=== PATIENT | male | born 1985 | race Caucasian/White ===

== ENCOUNTER 2017-02-22 15:13 | Emergency (ER) | payer OTHER ==
[2017-02-22] MEDS ORDERED: IBUPROFEN 800 MG TAB PO STA (15:56)
[2017-02-22] MEDS ORDERED: DIPH,PERTUS(ACELL)TETVAC-LF 0.5 ML VIAL IM ONE (15:57)
--- NOTE | 2017-02-22 16:01 | ED ---
Lower Extremity Injury HPI - General Chief Complaint: Extremity Injury, Lower Stated Complaint: Foot Injury Time Seen by Provider: 02/22/17 15:39 Source: patient Mode of arrival: ambulatory Limitations: no limitations - History of Present Illness Initial Comments: Patient is a 31-year-old male presenting to the emergency department with chief complaint of left foot pain. Patient states she was out walking in his driveway approximately 4 hours prior to arrival when he stopped on a nail. Patient was wearing tennis shoes. Patient is currently complaining of left foot pain rated 6 out of 10, described as sharp, exacerbated with activity, no relieving factors. No treatment prior to arrival. Patient doesn't recall when he received his last tetanus immunization. Patient denies recent illness, fevers, nausea, vomiting, shortness of breath, chest pain, or abdominal pain. Patient denies numbness or tingling. Patient denies previous injury or fracture to left lower extremity. - Related Data Previous Rx's Medication Instructions Recorded Ciprofloxacin HCl [Cipro] 500 mg PO Q12HR #19 tablet 02/22/17 Allergies Allergy/AdvReac Type Severity Reaction Status Date / Time No Known Allergies Allergy Verified 02/22/17 15:19 Review of Systems ROS Statement: Those systems with pertinent positive or pertinent negative responses have been documented in the HPI. ROS Other: All systems not noted in ROS Statement are negative. Past Medical History Past Medical History: No Reported History History of Any Multi-Drug Resistant Organisms: None Reported Past Surgical History: No Surgical Hx Reported Past Psychological History: No Psychological Hx Reported Smoking Status: Current every day smoker Past Alcohol Use History: Occasional Past Drug Use History: None Reported General Exam - General Exam Comments Initial Comments: GENERAL: Pt awake and alert, well-appearing, well-nourished, and in no acute distress. HEAD: Atraumatic, normocephalic. EYES: Pupils equal, round, and reactive to light, extraocular movements intact, sclera anicteric, conjunctiva are normal. ENT: Oropharynx clear without exudates. Moist mucous membranes. Tongue smooth, pink, no lesions, protrudes in midline. NECK:Normal range of motion, supple without lymphadenopathy or JVD. No carotid bruits. Thyroid midline, small and firm without palpable masses. LUNGS: Breath sounds clear to auscultation bilaterally. No wheezes, rales, or rhonchi. HEART: Heart S1, S2, no S3 or S4. No murmurs, rubs or gallops. ABDOMEN: Soft, nontender, nondistended, normoactive bowel sounds. No guarding, no rebound. No masses or organomegaly appreciated. MUSCULOSKELETAL: Normal ROM. Strength 5/5. EXTREMITIES: Dorsalis pedis pulses intact. No edema. No calf tenderness. Full range of motion of bilateral feet. NEUROLOGICAL: Pt oriented x 3. Cranial nerves II through XII grossly intact. Strength and sensation grossly intact. PSYCH: Normal mood, normal affect. SKIN: Warm, dry. Puncture wound noted to plantar aspect of forefoot. No erythema or purulent drainage noted. Limitations: no limitations Course Vital Signs 02/22/17 02/22/17 15:16 16:56 Temperature 99.0 F 97.0 F L Pulse Rate 86 72 Respiratory 16 18 Rate Blood Pressure 125/77 124/78 O2 Sat by Pulse 96 99 Oximetry Procedures - Laceration Laceration #1 Consent Obtained: verbal consent Time Out Performed: No Indication: other (Puncture wound) Site: foot (Left forefoot) Size (cm): 1 Description: contaminated Anesthetic Used: lidocaine 1% Anesthesia Technique: local infiltration Amount (mls): 2 Pre-repair: wound explored, irrigated extensively Patient Tolerated Procedure: well, no complications Additional Comments: Puncture wound irrigated extensively, no foreign body identified. Medical Decision Making - Medical Decision Making Puncture wound to plantar aspect of left forefoot secondary to stepping on a nail. Left foot x-ray negative for fracture or radiopaque foreign body. Puncture wound irrigated extensively and explored with no evidence of foreign body. Patient instructed that foreign body may be present despite exploration and x-ray. Patient placed on Cipro 500 twice a day for 10 days to cover Pseudomonas. Patient instructed to monitor for signs and symptoms of infection and return to the emergency department with worsening symptoms. Patient struck his follow-up with primary care physician for wound check in next 24-48 hours. Patient instructed to continue Motrin or Tylenol for pain. Patient agrees with treatment plan. - Radiology Data Radiology results: report reviewed X-ray left foot: No retained foreign bodies. No acute fracture. Disposition Clinical Impression: Puncture wound of left foot excluding toes without complication Disposition: HOME SELF-CARE Condition: Good Instructions: Puncture Wound (ED) Additional Instructions: Continue antibiotics as prescribed. Keep wound clean and dry. May soak foot in soap water 1-2 times a day. Monitor for signs and symptoms of infection such as increased redness, swelling, pain, or purulent drainage. Follow-up primary care physician in 48-72 hours for wound check. Continue Motrin or Tylenol for pain. Please return to the emergency department with any new or worsening symptoms. Prescriptions: Ciprofloxacin HCl [Cipro] 500 mg PO Q12HR #19 tablet Referrals: None,Stated [Primary Care Provider] - 1-2 days Time of Disposition: 16:50
--- NOTE | 2017-02-22 16:31 | XR ---
EXAMINATION TYPE: XR foot complete LT DATE OF EXAM: 02/22/2017 COMPARISON: NONE HISTORY: 31-year-old male pain first MTP joint after stepping on nail TECHNIQUE: 3 views FINDINGS: No retained radiopaque foreign body seen. No periostitis or osteolysis. No acute fracture, subluxation, or dislocation identified. No soft tissue gas identified. IMPRESSION: No acute osseous abnormality seen.
[2017-02-22] MEDS ORDERED: CIPROFLOXACIN HCL 500 MG TAB PO STA (16:46)
[2017-02-22 16:57] VITALS: BP 124/78; PULSE 72; RESP 18; TEMP 97
== END 2017-02-22 16:57 | disposition home or self-care (01) ==
LOC: EC 15:13
DX: S91.332A Puncture wound without foreign body, left foot, initial encounter (principal); Z23 Encounter for immunization; F17.200 Nicotine dependence, unspecified, uncomplicated; W45.0XXA Nail entering through skin, initial encounter
CPT/HCPCS: 90471; 90715; 99283

== ENCOUNTER 2018-12-06 04:27 | Emergency (ER) | payer OTHER ==
--- NOTE | 2018-12-06 04:49 | ED ---
Back Pain HPI - General Stated Complaint: Back Injury Time Seen by Provider: 12/06/18 04:32 Source: RN notes reviewed, old records reviewed - History of Present Illness Initial Comments: This is a 31-year-old male the ER for evaluation. Patient states he is a work- related injury, he does a lot of heavy lifting at work when he left scapular pain. Patient has worsening pain with movement. No Motrin or Tylenol taking family did taking [place] yesterday but states now but that is not working anymore. No significant trauma no chest pain, no recent fevers, no other noted issues MD Complaint: back pain (Left scapular pain) -: days(s) Similar Symptoms Previously: No Place: work Radiation: none Severity: mild Severity scale (1-10): 2 Quality: sharp, dull Consistency: intermittent Improves With: immobilization Worsens With: medication Context: while lifting Associated Symptoms: denies other symptoms Treatments Prior to Arrival: prescription analgesics - Related Data Previous Rx's Medication Instructions Recorded Ciprofloxacin HCl [Cipro] 500 mg PO Q12HR #19 tablet 02/22/17 Naproxen [Naprosyn] 500 mg PO Q12HR PRN #30 tab 12/06/18 Allergies Allergy/AdvReac Type Severity Reaction Status Date / Time No Known Allergies Allergy Verified 12/06/18 04:52 Review of Systems ROS Statement: Those systems with pertinent positive or pertinent negative responses have been documented in the HPI. ROS Other: All systems not noted in ROS Statement are negative. Past Medical History Past Medical History: No Reported History History of Any Multi-Drug Resistant Organisms: None Reported Past Surgical History: No Surgical Hx Reported Past Psychological History: No Psychological Hx Reported Smoking Status: Current every day smoker Past Alcohol Use History: Occasional Past Drug Use History: None Reported General Exam - General Exam Comments Initial Comments: Complains of tenderness for her left scapula General appearance: alert, in no apparent distress Head exam: Present: atraumatic, normocephalic, normal inspection Eye exam: Present: normal appearance, PERRL, EOMI. Absent: scleral icterus, conjunctival injection, periorbital swelling ENT exam: Present: normal exam, mucous membranes moist Neck exam: Present: normal inspection. Absent: tenderness, meningismus, lymphadenopathy Respiratory exam: Present: normal lung sounds bilaterally. Absent: respiratory distress, wheezes, rales, rhonchi, stridor Cardiovascular Exam: Present: regular rate, normal rhythm, normal heart sounds. Absent: systolic murmur, diastolic murmur, rubs, gallop, clicks GI/Abdominal exam: Present: soft, normal bowel sounds. Absent: distended, tenderness, guarding, rebound, rigid Extremities exam: Present: normal inspection, full ROM, normal capillary refill. Absent: tenderness, pedal edema, joint swelling, calf tenderness Back exam: Present: normal inspection Neurological exam: Present: alert, oriented X3, CN II-XII intact Psychiatric exam: Present: normal affect, normal mood Skin exam: Present: warm, dry, intact, normal color. Absent: rash Course Vital Signs 12/06/18 04:49 Temperature 98.0 F Pulse Rate 80 Respiratory 14 Rate Blood Pressure 130/97 O2 Sat by Pulse 97 Oximetry - Reevaluation(s) Reevaluation #1: Medical record is reviewed Patient has pain control Medical Decision Making - Medical Decision Making 33 male the ER for evaluation. Patient resents today for evaluation of back pain. X-rays are negative pain is controlled and patient can be discharged home - Radiology Data Radiology results: report reviewed (X-ray chest and shoulder negative for acute disease), image reviewed Disposition Clinical Impression: Thoracic back pain, Mid back pain Disposition: HOME SELF-CARE Condition: Good Instructions (If sedation given, give patient instructions): Back Pain (ED) Prescriptions: Naproxen [Naprosyn] 500 mg PO Q12HR PRN #30 tab PRN Reason: Pain Is patient prescribed a controlled substance at d/c from ED?: No Referrals: None,Stated [Primary Care Provider] - 1-2 days
[2018-12-06 04:52] VITALS: BP 130/97; PULSE 80; RESP 14; TEMP 98
[2018-12-06] MEDS ORDERED: KETOROLAC 60 MG/2 ML VIAL IM STA (05:25)
[2018-12-06] MEDS ORDERED: ACETAMINOPHEN TAB 500 MG TAB PO STA (05:25)
--- NOTE | 2018-12-06 05:39 | XR ---
EXAM: XR Chest, 2 Views CLINICAL HISTORY: Pain TECHNIQUE: Frontal and lateral views of the chest. COMPARISON: No relevant prior studies available. FINDINGS: Lungs: Unremarkable. No consolidation. Pleural space: Unremarkable. No pneumothorax. Heart: Unremarkable. No cardiomegaly. Mediastinum: Unremarkable. Bones/joints: No acute osseous abnormality. IMPRESSION: No acute cardiopulmonary process.
--- NOTE | 2018-12-06 05:39 | XR ---
EXAM: XR Left Shoulder Complete, 2 or More Views CLINICAL HISTORY: Pain TECHNIQUE: Two or more views of the left shoulder. COMPARISON: No relevant prior studies available. FINDINGS: Bones/joints: No acute fracture or dislocation. Soft tissues: Unremarkable. IMPRESSION: No acute fracture or dislocation.
== END 2018-12-06 05:57 | disposition home or self-care (01) ==
LOC: EC 04:27
DX: M54.6 Pain in thoracic spine (principal); M54.9 Dorsalgia, unspecified; F17.200 Nicotine dependence, unspecified, uncomplicated
CPT/HCPCS: 73030; 71046; 99284; 96372; J1885

== ENCOUNTER 2021-04-13 03:34 | Emergency (ER) | payer OTHER ==
--- NOTE | 2021-04-13 04:31 | XR ---
EXAMINATION TYPE: XR chest 1V portable DATE OF EXAM: 04/13/2021 COMPARISON: 12/06/2018 HISTORY: Congestion TECHNIQUE: FINDINGS: Heart and mediastinum are normal. There is a mild infiltrate left lower lobe. There are no hilar masses. Costophrenic angles are clear. Bony thorax is intact. IMPRESSION: There is some left lower lobe pneumonia that appears new compared to old exam.
[2021-04-13 04:42] VITALS: RESP 20
[2021-04-13] MEDS ORDERED: IBUPROFEN 400 MG TAB PO STA (04:53)
[2021-04-13] MEDS ORDERED: AZITHROMYCIN 500 MG TAB PO STA (04:56)
[2021-04-13] MEDS ORDERED: cefTRIAXone 1,000 MG VIAL (IM USE) IM STA (04:56)
--- NOTE | 2021-04-13 05:00 | ED ---
Fever HPI - General Chief Complaint: Fever Stated Complaint: Fever, Headache Time Seen by Provider: 04/13/21 04:28 Source: patient Mode of arrival: ambulatory Limitations: no limitations - Related Data Previous Rx's Medication Instructions Recorded Ciprofloxacin HCl [Cipro] 500 mg PO Q12HR #19 tablet 02/22/17 Naproxen [Naprosyn] 500 mg PO Q12HR PRN #30 tab 12/06/18 Azithromycin [Zithromax Z-pack (6 250 mg PO DIRECTED #6 tab 04/13/21 tabs)] Allergies Allergy/AdvReac Type Severity Reaction Status Date / Time No Known Allergies Allergy Verified 04/13/21 03:42 Review of Systems ROS Statement: Those systems with pertinent positive or pertinent negative responses have been documented in the HPI. ROS Other: All systems not noted in ROS Statement are negative. Past Medical History Past Medical History: No Reported History History of Any Multi-Drug Resistant Organisms: None Reported Past Surgical History: No Surgical Hx Reported Past Psychological History: No Psychological Hx Reported Smoking Status: Current every day smoker Past Alcohol Use History: Occasional Past Drug Use History: None Reported General Exam Limitations: no limitations Course Vital Signs 04/13/21 04/13/21 03:38 04:40 Temperature 102.2 F H 102.1 F H Pulse Rate 110 H 101 H Respiratory 24 20 Rate Blood Pressure 128/77 128/62 O2 Sat by Pulse 97 97 Oximetry Medical Decision Making - Lab Data Lab Results 04/13/21 Range/Units 03:43 Coronavirus (PCR) Not Detected (Not Detectd) Disposition Clinical Impression: Pneumonia Disposition: HOME SELF-CARE Condition: Good Instructions (If sedation given, give patient instructions): Pneumonia (ED) Prescriptions: Azithromycin [Zithromax Z-pack (6 tabs)] 250 mg PO DIRECTED #6 tab Is patient prescribed a controlled substance at d/c from ED?: No Referrals: None,Stated [Primary Care Provider] - 1-2 days
[2021-04-13 05:36] VITALS: BP 126/72; PULSE 90; TEMP 99.7
== END 2021-04-13 05:36 | disposition home or self-care (01) ==
LOC: EC 03:34
DX: J18.9 Pneumonia, unspecified organism (principal); F17.200 Nicotine dependence, unspecified, uncomplicated; Z72.89 Other problems related to lifestyle
CPT/HCPCS: 87635; 71045; 99284; 96372; J0696

== ENCOUNTER 2024-10-08 16:21 | Emergency (ER) | payer OTHER ==
[2024-10-08 16:39] VITALS: RESP 22
--- NOTE | 2024-10-08 17:20 | ED ---
Extremity Problem HPI - General Source: patient, RN notes reviewed Mode of arrival: ambulatory Limitations: no limitations <Edyta Stevens - Last Filed: 10/08/24 17:19> <Javier Lawson - Last Filed: 10/10/24 16:59> - General Chief complaint: Extremity Problem,Nontraumatic Stated complaint: Recheck-Feet swelling Time Seen by Provider: 10/08/24 17:20 - History of Present Illness Initial comments: Quick [id number] male presenting for bilateral lower extremity swelling x 6 months. States he went to urgent care today as he reports worsening of symptoms and was sent to the ER for ultrasound to rule out DVT. Denies chest pain, shortness of breath. Denies any other significant health conditions. (Edyta Stevens) 39-year-old male presenting with chief complaint of bilateral lower extremity swelling. This has been ongoing for 6 months. Patient was seen at urgent care today and advised to come here for an ultrasound to rule out DVT. Patient denies any chest pain, difficulty breathing, abdominal distention, fever, chills, injury, trauma, dizziness, weakness. (Javier Lawson) - Related Data Previous Rx's Medication Instructions Recorded Ciprofloxacin HCl [Cipro] 500 mg PO Q12HR #19 tablet 02/22/17 Naproxen [Naprosyn] 500 mg PO Q12HR PRN #30 tab 12/06/18 Azithromycin [Zithromax Z-pack (6 250 mg PO DIRECTED #6 tab 04/13/21 tabs)] Allergies Allergy/AdvReac Type Severity Reaction Status Date / Time methylphenidate AdvReac Hallucinati Verified 10/08/24 16:39 [From Ritalin] ons Review of Systems ROS Other: All systems not noted in ROS Statement are negative. <Edyta Stevens - Last Filed: 10/08/24 17:19> ROS Other: All systems not noted in ROS Statement are negative. <Javier Lawson - Last Filed: 10/10/24 16:59> ROS Statement: Those systems with pertinent positive or pertinent negative responses have been documented in the HPI. Past Medical History Past Medical History: No Reported History History of Any Multi-Drug Resistant Organisms: None Reported Past Surgical History: No Surgical Hx Reported Past Psychological History: No Psychological Hx Reported Smoking Status: Current every day smoker Past Alcohol Use History: Occasional Past Drug Use History: None Reported <Edyta Stevens - Last Filed: 10/08/24 17:19> General Exam Limitations: no limitations <Edyta Stevens - Last Filed: 10/08/24 17:19> Limitations: no limitations General appearance: alert, in no apparent distress Head exam: Present: atraumatic, normocephalic, normal inspection Eye exam: Present: normal appearance, EOMI Neck exam: Present: normal inspection. Absent: meningismus Respiratory exam: Present: normal lung sounds bilaterally. Absent: respiratory distress, wheezes, rales, rhonchi, stridor Cardiovascular Exam: Present: regular rate, normal rhythm, normal heart sounds. Absent: systolic murmur, diastolic murmur, rubs, gallop, clicks Extremities exam: Present: pedal edema Neurological exam: Present: alert, oriented X3 Psychiatric exam: Present: normal affect, normal mood Skin exam: Present: warm, dry, normal color <Javier Lawson - Last Filed: 10/10/24 16:59> - General Exam Comments Initial Comments: Visual Physical Exam Vital signs reviewed General: Well-appearing, nontoxic, no acute distress. Head: Normocephalic, atraumatic Eyes: PERRLA, EOMI ENT: Airway patent Chest: Nonlabored breathing Skin: No visual rash, normal skin tone Neuro: Alert and oriented 3 Musculoskeletal: No gross abnormalities (Edyta Stevens) Course Vital Signs 10/08/24 10/08/24 16:37 20:52 Temperature 97.8 F 97.9 F Pulse Rate 94 97 Respiratory 22 22 Rate Blood Pressure 131/80 112/77 O2 Sat by Pulse 98 99 Oximetry Medical Decision Making <Edyta Stevens - Last Filed: 10/08/24 17:19> - Lab Data Result diagrams: 10/08/24 17:56 10/08/24 17:56 <Javier Lawson - Last Filed: 10/10/24 16:59> - Medical Decision Making I completed the quick note portion of this chart signed Edyta Stevens PA-C (Edyta Stevens) Was pt. sent in by a medical professional or institution (, PA, [employer], urgent care, hospital, or senior living...) When possible be specific @ -No Did you speak to anyone other than the patient for history (EMS, parent, family, police, friend...)? What history was obtained from this source @ -No Did you review nursing and triage notes (agree or disagree)? Why? @ -I reviewed and agree with nursing and triage notes Were old charts reviewed (outside hosp., previous admission, EMS record, old EKG, old radiological studies, urgent care reports/EKG's, senior living records)? Report findings @ -No old charts were reviewed Differential Diagnosis (chest pain, altered mental status, abdominal pain women, abdominal pain men, vaginal bleeding, weakness, fever, dyspnea, syncope, heada rayna, dizziness, GI bleed, back pain, seizure, CVA, palpatations, mental health, musculoskeletal)? @ -Differential includes DVT, CHF, gravity dependent edema, hepatic disease, not an all-inclusive list EKG interpreted by me (3pts min.). @ -As above X-rays interpreted by me (1pt min.). @ -None done CT interpreted by me (1pt min.). @ -Ultrasound negative for DVT U/S interpreted by me (1pt. min.). @ -None done What testing was considered but not performed or refused? (CT, X-rays, U/S, labs)? Why? @ -None What meds were considered but not given or refused? Why? @ -None Did you discuss the management of the patient with other professionals (professionals i.e. , PA, [employer], lab, RT, psych nurse, medical social worker, ornamental machine operator, teacher, chief business officer, business case analyst)? Give summary @ -No Was smoking cessation discussed for >3mins.? @ -No Was critical care preformed (if so, how long)? @ -No Were there social determinants of health that impacted care today? How? (Homelessness, low income, unemployed, alcoholism, drug addiction, transportation, low edu. Level, literacy, decrease access to med. care, half-way, rehab)? @ -No Was there de-escalation of care discussed even if they declined (Discuss DNR or withdrawal of care, Hospice)? DNR status @ -No What co-morbidities impacted this encounter? (DM, HTN, Smoking, COPD, CAD, Cancer, CVA, ARF, Chemo, Hep., AIDS, mental health diagnosis, sleep apnea, morbid obesity)? @ -None Was patient admitted / discharged? Hospital course, mention meds given and route, prescriptions, significant lab abnormalities, going to OR and other pertinent info. @ -39-year-old male presenting with chief complaint of lower extremity swelling ongoing for 6 months. No chest pain or difficulty breathing. Workup initiated by triage and patient is later placed in room devalue by myself. Lab work is grossly unremarkable. Ultrasound negative for DVT. Patient is educated on these findings and instructed that he needs to follow-up with PCP. Discharged. Follow-up with PCP. Report back to ER with any new or worsening symptoms. Discussed return parameters and answered all questions. Patient conveyed verbal understanding and agreed to the plan. I discussed this case in detail with my attending Dr. Meng Undiagnosed new problem with uncertain prognosis? @ -No Drug Therapy requiring intensive monitoring for toxicity (Heparin, Nitro, Insulin, Cardizem)? @ -No Were any procedures done? @ -No Diagnosis/symptom? @ -Leg edema Acute, or Chronic, or Acute on Chronic? @ -Acute Uncomplicated (without systemic symptoms) or Complicated (systemic symptoms)? @ -Uncomplicated Side effects of treatment? @ -No Exacerbation, Progression, or Severe Exacerbation? @ -No Poses a threat to life or bodily function? How? (Chest pain, [place], [place], pneumonia, PE, COPD, DKA, ARF, appy, cholecystitis, CVA, Diverticulitis, Homicidal, Suicidal, threat to staff... and all critical care pts) @ -Unlikely (Javier Lawson) - Lab Data Lab Results 10/08/24 10/08/24 10/08/24 Range/Units 17:56 17:56 19:33 WBC 7.96 (4.50-10.00) 10*3/uL RBC 5.04 (4.40-5.60) 10*6/uL Hgb 14.4 (13.0-17.0) g/dL Hct 43.4 (39.6-50.0) % MCV 86.1 (80.0-97.0) fL MCH 28.6 (27.0-32.0) pg MCHC 33.2 (32.0-37.0) g/dL Plt Count 231 (140-440) 10*3/uL MPV 10.3 (9.5-12.2) fL Immature Gran % (Auto) 0.1 % Neutrophils % 54.7 % Lymphocytes % 31.7 % Monocytes % 8.4 % Eosinophils % 4.0 % Basophils % 1.1 % Immature Gran # 0.01 (0.00-0.04) 10*3/uL Neutrophils # 4.35 (1.80-7.70) 10*3/uL Lymphocytes # 2.52 (0.90-5.00) 10*3/uL Monocytes # 0.67 (0.20-1.00) 10*3/uL Eosinophils # 0.32 (0.04-0.35) 10*3/uL Basophils # 0.09 (0.00-0.10) 10*3/uL Sodium 140 (137-145) mmol/L Potassium 3.8 (3.5-5.1) mmol/L Chloride 100 (98-107) mmol/L Carbon Dioxide 31 H (22-30) mmol/L Anion Gap 9 mmol/L BUN 16 (9-20) mg/dL Creatinine 0.62 L (0.66-1.25) mg/dL Est GFR (CKD-EPI)AfAm >90 (>60 ml/min/1.73 sqM) Est GFR (CKD-EPI)NonAf >90 (>60 ml/min/1.73 sqM) Glucose 94 (74-99) mg/dL Calcium 9.7 (8.4-10.2) mg/dL Total Bilirubin 0.4 (0.2-1.3) mg/dL AST 27 (17-59) U/L ALT 25 (4-49) U/L Alkaline Phosphatase 57 (38-126) U/L Total Protein 7.1 (6.3-8.2) g/dL Albumin 4.4 (3.5-5.0) g/dL Urine Color Colorless Urine Appearance Clear (Clear) Urine pH 7.0 (5.0-8.0) Ur Specific [place] 1.008 (1.001-1.035) Urine Protein Negative (Negative) Urine Glucose (UA) Negative (Negative) Urine Ketones Negative (Negative) Urine Blood Negative (Negative) Urine Nitrite Negative (Negative) Urine Bilirubin Negative (Negative) Urine Urobilinogen 2.0 (<2.0) mg/dL Ur Leukocyte Esterase Negative (Negative) Disposition <Edyta Stevens - Last Filed: 10/08/24 17:19> Is patient prescribed a controlled substance at d/c from ED?: No Time of Disposition: 20:44 <Javier Lawson - Last Filed: 10/10/24 16:59> Clinical Impression: Leg swelling Disposition: HOME SELF-CARE Condition: Good Instructions (If sedation given, give patient instructions): Leg Edema (ED) Additional Instructions: Follow-up with PCP. Report back to ER with any new or worsening symptoms. Referrals: [facility] [NON-STAFF] - 1-2 days (Contact a primary care office to become established with a provider. ) None,Stated [Primary Care Provider] - 1-2 days Forms: Area PCPs
[2024-10-08 18:04] LABS: Basophils # (A) 0.09 10*3/uL (0.00-0.10); Basophils % (A) 1.1 %; Eosinophils # (A) 0.32 10*3/uL (0.04-0.35); HCT 43.4 % (39.6-50.0); HGB 14.4 g/dL (13.0-17.0); Lymphocytes # (A) 2.52 10*3/uL (0.90-5.00); Lymphocytes % (A) 31.7 %; MCH 28.6 pg (27.0-32.0); MCHC 33.2 g/dL (32.0-37.0); MCV 86.1 fL (80.0-97.0); Mean Platelet Volume 10.3 fL (9.5-12.2); Monocytes # (A) 0.67 10*3/uL (0.20-1.00); Monocytes % (A) 8.4 %; Neutrophils # (A) 4.35 10*3/uL (1.80-7.70); Neutrophils % (A) 54.7 %; Platelet Count 231 10*3/uL (140-440); RBC 5.04 10*6/uL (4.40-5.60); RDW 14.2 % (11.5-14.5); WBC 7.96 10*3/uL (4.50-10.00)
[2024-10-08 18:17] LABS: ALT 25 U/L (4-49); AST 27 U/L (17-59); African American GFR (CKD) >90 (>60 ml/min/1.73 sqM); Albumin 4.4 g/dL (3.5-5.0); Alkaline Phosphatase 57 U/L (38-126); Anion Gap 9 mmol/L; Blood Urea Nitrogen 16 mg/dL (9-20); Calcium 9.7 mg/dL (8.4-10.2); Carbon Dioxide 31 mmol/L (22-30); Chloride 100 mmol/L (98-107); Glucose 94 mg/dL (74-99); Non-African American GFR(CKD) >90 (>60 ml/min/1.73 sqM); Potassium 3.8 mmol/L (3.5-5.1); Sodium 140 mmol/L (137-145); Total Bilirubin 0.4 mg/dL (0.2-1.3); Total Protein 7.1 g/dL (6.3-8.2)
[2024-10-08 19:46] LABS: Appearance,Urine Clear (Clear); Bilirubin,Urine Negative (Negative); Blood,Urine Negative (Negative); Color,Urine Colorless; Glucose,Urine (UA) Negative (Negative); Ketones,Urine Negative (Negative); Leukocyte Esterase,Urine Negative (Negative); Nitrite,Urine Negative (Negative); Protein,Urine Negative (Negative); Specific Gravity,Urine 1.008 (1.001-1.035)
--- NOTE | 2024-10-08 19:52 | US ---
EXAMINATION TYPE: US venous doppler duplex LE BI DATE OF EXAM: 10/08/2024 7:29 PM COMPARISON: NONE CLINICAL INDICATION: Male, 39 years old with history of Bilateral lower extremity edema; patient stat es BLE swelling. no pain, redness, warmth, or other relevant symptoms, Pain TECHNIQUE: The lower extremity deep venous system is examined utilizing real time linear array sonog rajendra with graded compression, color doppler sonography, and spectral doppler. SIDE PERFORMED: Bilateral FINDINGS: VESSELS IMAGED: Common Femoral Vein Deep Femoral Vein Greater Saphenous Vein * Femoral Vein Popliteal Vein Small Saphenous Vein * Proximal Calf Veins (* superficial vessels) Right Leg: Negative for DVT, Color Doppler imaging shows patency of the vessels. Spectral waveforms are within normal limits. Left Leg: Negative for DVT, Color Doppler imaging shows patency of the vessels. Spectral waveforms a re within normal limits. IMPRESSION: No ultrasound evidence for deep venous thrombosis. [facility], , 10/08/2024 7:50 PM
[2024-10-08 21:11] VITALS: BP 112/77; PULSE 97; TEMP 97.9
== END 2024-10-08 20:52 | disposition home or self-care (01) ==
LOC: EC 16:21
DX: R60.9 Edema, unspecified (principal); F17.200 Nicotine dependence, unspecified, uncomplicated; Z88.8 Allergy status to other drugs, medicaments and biological substances
CPT/HCPCS: 36415; 80053; 81003; 85025; 93970; 99284

== ENCOUNTER → 2024-10-11 | Emergency (ER) | payer OTHER | LOC: EC 18:28 | DX: Z53.21 Procedure and treatment not carried out due to patient leaving prior to being seen by health care provider (principal) | CPT/HCPCS: 99499 ==